=== PATIENT | male | born 2000 | race Hispanic/Latino ===

== ENCOUNTER 2025-01-08 17:32 | Emergency (ER) | payer SELFPAY ==
[~2025-01-08] VITALS: Ht 175.3 cm; Wt 62.6 kg
--- NOTE | 2025-01-08 17:55 | ERN ---
ED Note History of Present Illness Stated Complaint: PAINFUL URINATION Chief Complaint: Painful Urination Time Seen by MD: 17:40 Dictation: PATIENT IS A 24-YEAR-OLD MALE COMING IN TODAY WITH COMPLAINTS OF BURNING URINATION WITHOUT FEVER CHILLS NAUSEA VOMITING THAT HE HAS HAD FOR 4-5 DAYS. HE ALSO STATES HE HAS HAD SOME BUMPS TO HIS PENIS SHAFT THAT HE HAS HAD SINCE HE WAS17 YEARS OLD AND WAS TWO SHOTS UNTIL HIS PARENTS, NOW HAS ALSO NOT TOLD HIS PRIMARY CARE DOCTOR. DENIES ANY HISTORY OF SEXUALLY TRANSMITTED DISEASE NO DISCHARGE. Allergies: Coded Allergies: No Known Drug Allergies (Unverified Allergy, Unknown, 01/08/25) Home Meds Active Scripts Doxycycline Hyclate (Doxycycline Hyclate) 100 Mg Capsule, 1 CAP PO BID for 10 Days, #20 CAP 0 Refills Prov:NACHO SNELL NP 01/08/25 Azithromycin (Azithromycin) 500 Mg Tablet, 1000 MG PO ONCE, #2 TAB Two tablets by mouth x1 day Prov:NACHO SNELL [employer] 01/08/25 Past Medical History Past Medical History: No Pertinent History, Asthma Surgical History: Other RN Note Reviewed/Agreed w/PFSH: Yes Review of System Dictation CONSTITUTIONAL: NEGATIVE EXCEPT FOR HPI HEAD/FACE: NEGATIVE EXCEPT FOR HPI EENT: NEGATIVE EXCEPT FOR HPI RESPIRATORY: NEGATIVE EXCEPT FOR HPI GASTROINTESTINAL/ABDOMINAL: NEGATIVE EXCEPT FOR HPI GENITOURINARY: NEGATIVE EXCEPT FOR HPI DYSURIA MUSCULOSKELETAL: NEGATIVE EXCEPT FOR HPI INTEGUMENTARY: NEGATIVE EXCEPT FOR HPI NEUROLOGICAL/PSYCH: NEGATIVE EXCEPT FOR HPI HEMATOLOGIC/LYMPHATIC: NEGATIVE EXCEPT FOR HPI ALL SYSTEMS NEGATIVE, EXCEPT NOTED ABOVE. 13 POINT REVIEW OF SYSTEMS ASSESSED AND ALL NEGATIVE EXCEPT FOR ABOVE. Initial Vital Sign VS Vital Signs Date Time Temp Pulse Resp B/P (MAP) Pulse Ox O2 Delivery O2 Flow Rate FiO2 01/08/25 17:36 98.4 84 20 148/75 99 01/08/25 18:51 Room Air* 0 21 Physical Exam Dictation VITAL SIGNS REVIEWED GENERAL APPEARANCE: ALERT, ORIENTED X 3, NO ACUTE DISTRESS, WELL DEVELOPED, NOURISHED. HEAD AND FACE: NON-TRAUMATIC. EYES: PERRL, PINK CONJUNCTIVAS, EYELID NO TRAUMA, ANTERIOR CHAMBER WITH ARCUS SENILIS. EARS: PINNAS INTACT AND NO SIGNS OF TRAUMA OR ERYTHEMA EAR CANALS CLEAR AND NO DISCHARGE TM NO ERYTHEMA NOSE: NO DISCHARGE, NO BLEEDING. OROPHARYNX: MOUTH NORMAL, TONGUE PINK, PHARYNX CLEAR,NO ERYTHEMA, TONSILS NO EXUDATES, NO ABSCESSES NOTED, MUCOUS MEMBRANE MOIST NECK: SUPPLE, NON-TENDER, NO THYROMEGALY, NO MASSES, NO JVD, NO BRUITS BREAST:DEFERRED CHEST:NO TENDERNESS, NO CREPITUS, NO PARADOXICAL MOVEMENT, NO RETRACTIONS LUNGS:CLEAR, WELL-VENTILATED, SYMMETRIC, NO RALES, NO WHEEZING, NO RHONCHI, NO STRIDOR, GOOD BREATH SOUNDS BILATERALLY HEART: REGULAR RATE, REGULAR RHYTHM, NO MURMUR, NO GALLOPS VASCULAR: NO PERIPHERAL EDEMA, ABDOMEN: SOFT, POSITIVE BOWEL SOUNDS, NONDISTENDED, NO GUARDING, NONTENDER, NO REBOUND, NO MASSES NO HEPATOMEGALY, NO SPLENOMEGALY, NO ALEMAN'S SIGN, NO HERNIAS. RECTAL: DEFERRED GENITAL: DEFERRED NEUROLOGICAL: NORMAL SPEECH, MOTOR FUNCTION INTACT, SENSORY FUNCTION INTACT MUSCULOSKELETAL: NECK NONTENDER, FULL RANGE OF MOTION, BACK NONTENDER, FULL RANGE OF MOTION, EXTREMITIES: NONTENDER, FULL RANGE OF MOTION SKIN: COLOR PINK, DRY, NO TURGOR, NO RASH, NO LACERATIONS, NO ABRASIONS, NO CONTUSIONS. LYMPHATIC: DEFERRED Results (Laboratory/Radiology) Laboratory/Radiology Laboratory Tests Test 01/08/25 18:00 Urine Color LIGHT-YELLOW (YELLOW) Urine Appearance CLEAR (CLEAR) Urine pH 7.0 (5.0-8.0) Urine Specific [place] 1.014 (1.001-1.031) Urine Protein NEGATIVE mg/dL (NEGATIVE) Urine Glucose (UA) NEGATIVE mg/dL (NEGATIVE) Urine Ketones 5 mg/dL (NEGATIVE) H Urine Occult Blood NEGATIVE (NEGATIVE) Urine Nitrate NEGATIVE (NEGATIVE) Urine Bilirubin NEGATIVE mg/dL (NEGATIVE) Urine Urobilinogen 0.2 mg/dL (0.2-1.0) Urine Leukocyte Esterase NEGATIVE Maria D/uL Labs Reviewed?: Yes ED Course ED Course Orders Procedure Category Date Status Time Urinalysis Profile LAB 01/08/25 Complete 17:53 Ceftriaxone 1g Vial PHA 01/08/25 Complete (Rocephine 1g Inj) 19:30 Chlamydia & Gc Pcr ALL 01/08/25 Complete 19:19 Lidocaine Hcl 1% 20ml PHA 01/08/25 Complete Vial (Lidocaine Hc 19:37 Current Medications Medications (Trade) Dose Ordered Sig/Eran Route PRN Reason Start Time Stop Time Status Last Admin Dose Admin Ceftriaxone Sodium (ROCEphine 1G INJ) 1 gm ONCE ONCE IM 01/08/25 19:30 01/08/25 19:31 DC 01/08/25 19:38 Lidocaine HCl (Lidocaine HCl 1% 20ml Vial) 20 ml STK-MED ONCE .ROUTE 01/08/25 19:37 01/08/25 19:37 DC Vital Signs Date Time Temp Pulse Resp B/P (MAP) Pulse Ox O2 Delivery O2 Flow Rate FiO2 01/08/25 19:47 98.4 70 16 119/62 100 Room Air* 0 21 01/08/25 18:51 73 19 122/74 96 Room Air* 0 21 01/08/25 17:36 98.4 84 20 148/75 99 1915/SPOKE WITH PATIENT REGARDING RESULTS FROM THE URINALYSIS. HE DID STATED THAT HE THINKS IT IS AN STD BECAUSE HE HAD SEX THAT WAS UNPROTECTED TWO WEEKS AGO. HE STATES THE SYMPTOMS STARTED ONE WEEK AFTER THE ENCOUNTER WITH A FEMALE. I MADE HIM AWARE THAT I WOULD RUN A GC CHLAMYDIA FROM THE URINE AND WE WILL TREAT HIM PROPHYLACTICALLY FOR STD. ADDITIONALLY I TOLD HIM TO ABSTAIN FROM SEX UNTIL CLEARED BY HIS PRIMARY CARE DOCTOR. Medical Decision Making MDM MEDICAL DECISION-MAKING BASED ON URINALYSIS. THIS WAS NEGATIVE, THEN PATIENT ADMITTED THAT HE HAD HAD AN UNPROTECTED SEXUAL ENCOUNTER. WE WILL TREAT PATIENT FOR SUSPECTED STD WITH ROCEPHIN/AZITHROMYCIN/DOXYCYCLINE. HE WILL BE REFERRED TO UROLOGY FOR FURTHER EVALUATION DX & DISP Disposition: Discharge Departure Impression: Primary Impression: Possible exposure to STD Condition: Stable Scripts Doxycycline Hyclate (Doxycycline Hyclate) 100 Mg Capsule 1 CAP PO BID for 10 Days, #20 CAP 0 Refills Prov: NACHO SNELL NP 01/08/25 Azithromycin (Azithromycin) 500 Mg Tablet 1000 MG PO ONCE, #2 TAB Two tablets by mouth x1 day Prov: NACHO SNELL [employer] 01/08/25 Additional Instructions: Follow-up with primary care provider in 1 to 2 days. Take medications as directed here in the emergency room. Okay to continue home medications unless otherwise discussed during your visit in the emergency room today. Return to your nearest emergency room if symptoms worsen or if there is no improvement. Call 911 if you need immediate assistance. Take Tylenol or Motrin [id number] as needed and if no contraindications are present. Increase oral hydration. A wound culture or urine culture was ordered here in the emergency room department please follow-up with primary care provider and advise them to get repeat ports from our facility. If you had any Aleksander wrap/splints that were applied here, please do not remove them until you see your primary care or specialty. No sex of any kind until cleared by your primary care doctor or urologist. Call for an appointment. Take medications as directed until gone. Referrals: TAPAN JAMES MD Time of Disposition: 19:20 I have reviewed the case, and I agree with, Diagnosis and Plan NACHO SNELL NP Jan 08, 2025 17:55 MOUSTAPHA PFEIFFER DO Jan 10, 2025 18:29
[2025-01-08 18:44] LABS: APPEARANCE,URINE CLEAR (CLEAR); BILIRUBIN,URINE NEGATIVE (NEGATIVE); COLOR,URINE LIGHT-YELLOW (YELLOW); GLUCOSE, URINE (UA) NEGATIVE (NEGATIVE); KETONES,URINE 5 mg/dL (NEGATIVE); LEUKOCYTE ESTERASE ,URINE NEGATIVE Leu/uL (NEGATIVE); NITRATE,URINE NEGATIVE (NEGATIVE); OCCULT BLOOD,URINE NEGATIVE (NEGATIVE); PROTEIN,URINE NEGATIVE (NEGATIVE); UROBILINOGEN,URINE 0.2 mg/dL (0.2-1.0)
[2025-01-08 18:50] LABS: ADD UA MICROSCOPIC NO
[2025-01-08] MEDS ORDERED: DOXY100C5 PO (19:22)
[2025-01-08] MEDS ORDERED: AZIT500T4 PO (19:22)
[2025-01-08] MEDS ORDERED: LIDOCAINE HCL 1% 20 ML VIAL ONE (19:37)
[2025-01-08] MEDS: cefTRIAXone 1G VIAL IM ONE (19:38)
[2025-01-08 19:47] VITALS: BP 119/62; PULSE 70; RESP 16; TEMP 98.5; O2SAT 100
== END 2025-01-08 19:58 | disposition home or self-care (01) ==
LOC: EDH 17:32
DX: R30.9 Painful micturition, unspecified (principal); Z20.2 Contact with and (suspected) exposure to infections with a predominantly sexual mode of transmission
CPT/HCPCS: 99283; 87491; 87591; 81003; 96372; J0696